=== PATIENT | female | born 1960 | race Caucasian/White ===

== ENCOUNTER 2016-06-13 18:35 | Emergency (ER) | payer BC, OTHER ==
[2016-06-13 18:40] VITALS: RESP 18
[2016-06-13] MEDS ORDERED: ONDANSETRON DISINTEGRATING 4 MG TAB PO ONE (19:41)
--- NOTE | 2016-06-13 20:27 | EDPHY ---
H & P Smoking Status: Never smoked Time Seen by Provider: 06/13/16 19:55 HPI/ROS: CHIEF COMPLAINT: Nausea, vomiting HISTORY OF PRESENT ILLNESS: 56-year-old female presents to the emergency department with multiple episodes of nausea vomiting since yesterday. She started with URI symptoms including rhinorrhea and cough 3 or 4 days ago. She has had subjective fevers and chills. No abdominal pain or back pain. She states that she is urinating frequently although denies dysuria. She did receive a flu shot. She denies chest pain or difficulty breathing. She does complain of a headache. Denies neck pain or stiffness. Denies rash. Denies calf pain. REVIEW OF SYSTEMS: Constitutional: Subjective fevers, chills Eyes: No double or blurry vision. ENT: No sore throat. Respiratory: No cough, no shortness of breath. Cardiac: No chest pain. Gastrointestinal: Vomiting, 2 episodes diarrhea. No abdominal pain. Genitourinary: No dysuria. Musculoskeletal: No neck or back pain. Skin: No rashes. Neurological: No headache. (Cristela Cao) Past Medical/Surgical History: negative (Cristela Cao) Social History: from [place] (Cristela Cao) Physical Exam: General Appearance: Alert, no distress. Nontoxic appearing. Eyes: Pupils equal and round. Extraocular motions are all intact. ENT: Mouth: Mucous membranes moist. Respiratory: No wheezing, rhonchi, or rales, lungs are clear to auscultation. Cardiovascular: Regular rate and rhythm. Gastrointestinal: Abdomen is soft and nontender, no masses, no rebound or guarding, bowel sounds normal. Neurological: Alert and oriented x 3, cranial nerves II through XII grossly intact Skin: Warm and dry, no rashes. Musculoskeletal: Nontender to palpate along the cervical, thoracic or lumbar spine. Neck is supple. Extremities: Full range of motion and no peripheral edema. Psychiatric: Patient is oriented X 3, there is no agitation. (Cristela Cao) Constitutional: Initial Vital Signs Temperature (C) 36.7 C 06/13/16 18:36 Heart Rate 80 06/13/16 18:36 Respiratory Rate 18 06/13/16 18:36 Blood Pressure 137/81 H 06/13/16 18:36 O2 Sat (%) 96 06/13/16 18:36 O2 Delivery Mode Room Air Allergies/Adverse Reactions: clarithromycin [From Biaxin] Allergy (Mild, Verified 06/13/16 18:40) nausea Home Medications: Medication Instructions Recorded Lovastatin 20 mg PO 06/13/16 Medical Decision Making ED Course/Re-evaluation: 56-year-old female presents to the emergency department with nausea vomiting. Patient's abdomen is benign. She reports no abdominal pain. She was given IV normal saline as well as IV Toradol and was feeling much better. Her laboratory studies were unremarkable. She was sent home with additional Zofran. She was instructed to return if she developed fever, abdominal pain or any other concerns. (Cristela Cao) Differential Diagnosis: Including but not limited to gastroenteritis, viral upper respiratory infection , bowel obstruction, altitude sickness (Cristela Cao) Other Provider: The patient wasevaluatedand managed by themidlevel provider. My co- signature indicates that Ihronnie reviewed this chart and I agree with the findings and plan of care asdocumented. I am the secondary supervising physician. (Ella Wong) - Data Points Laboratory Results: Laboratory Results 06/13/16 20:07 06/13/16 20:07 Medications Given: Discontinued Medications Ketorolac Tromethamine (Toradol) 30 mg IVP EDNOW ONE Stop: 06/13/16 20:56 Last Admin: 06/13/16 21:10 Dose: 30 mg Ondansetron HCl (Zofran Odt) 4 mg PO EDNOW ONE Stop: 06/13/16 19:42 Last Admin: 06/13/16 19:42 Dose: 4 mg Ondansetron HCl (Zofran Odt 4 Mg Prepack#2) 1 btl TAKEHOME EDNOW ONE Stop: 06/13/16 21:45 Last Admin: 06/13/16 21:57 Dose: 1 btl Departure - Departure Disposition: Home, Routine, Self-Care Clinical Impression: Gastroenteritis Upper respiratory infection Qualifiers: URI type: unspecified viral URI Qualified Code(s): J06.9 - Acute upper respiratory infection, unspecified Condition: Good Instructions: Upper Respiratory Infection (ED), Gastroenteritis (ED) Additional Instructions: Clear liquids and slowly advance diet as tolerated. Return to the emergency department if he developed recurring vomiting, fever, or if you feel worse in any way. Referrals: CHARLOTTE REYES [Other] - As per Instructions
[2016-06-13 20:30] LABS: % IMMATURE GRANULYOCYTES 0.3 % (0.0-1.1); ABSOLUTE IMMATURE GRANULOCYTES 0.02 10^3/uL (0.00-0.10); ADD DIFF? NO; ADD MORPH? NO; ADD SCAN? NO; ATYPICAL LYMPHOCYTE FLAG 0 (0-99); FRAGMENT RBC FLAG 0 (0-99); HEMATOCRIT 41.5 % (38.0-47.0); HEMOGLOBIN 13.9 g/dL (12.6-16.3); LEFT SHIFT FLG 0 (0-99); LIPEMIA HEMOLYSIS FLAG 80 (0-99); MEAN CELL HEMOGLOBIN 30.9 pg (27.9-34.1); MEAN CELL HEMOGLOBIN CONCENTR. 33.5 g/dL (32.4-36.7); MEAN CELL VOLUME 92.2 fL (81.5-99.8); MEAN PLATELET VOLUME 9.2 fL (8.7-11.7); PLATELET CLUMPS FLAG 10 (0-99); PLATELET COUNT 295 10^3/uL (150-400); RED CELL DISTRIBUTION WIDTH 13.6 % (11.5-15.2)
[2016-06-13 20:42] LABS: ANION GAP 12 mEq/L (8-16); CALCIUM 9.9 mg/dL (8.5-10.4); CARBON DIOXIDE 24 mEq/l (22-31); CHLORIDE 101 mEq/L (97-110); CREATININE 0.6 mg/dL (0.6-1.0); GLOMERULAR FILTRATION RATE > 60; GLUCOSE 95 mg/dL (70-100); POTASSIUM 3.9 mEq/L (3.5-5.2); SODIUM 137 mEq/L (134-144)
[2016-06-13] MEDS ORDERED: KETOROLAC 30 MG/1 ML SDV IVP ONE (20:55)
[2016-06-13 21:22] LABS: COLOR PALE YELLOW; LEUKOCYTE ESTERASE,URINE NEGATIVE (NEGATIVE); NITRITE,URINE NEGATIVE (NEGATIVE)
[2016-06-13] MEDS ORDERED: ONDANSETRON 4MG PREPACK#2 BTL TAKEHOME ONE (21:44)
[2016-06-13 22:05] VITALS: BP 113/58; PULSE 70; TEMP 98.8; O2SAT 94
== END 2016-06-13 22:05 | disposition home or self-care (01) ==
DX: K52.9 Noninfective gastroenteritis and colitis, unspecified (principal); J06.9 Acute upper respiratory infection, unspecified
CPT/HCPCS: 96374; J1885